=== PATIENT | male | born 1985 | race Caucasian/White ===

== ENCOUNTER 2017-11-25 00:14 | Emergency (ER) | payer BC, OTHER ==
[~2017-11-25] VITALS: Ht 172.7 cm; Wt 84.8 kg
[~2017-11-25 00:14] MED LIST: ACHD5005 PO; AMOX500C2 PO; BENZ100C18; DOXY-13 PO; HYDR118S10 PO; LEVO500T69 PO; NAPR-243 PO; PRCD5U PO; TYLENOL SINUS
--- OUTSIDE RECORDS SUMMARY | 2017-11-25 00:21 | XMS REPORT ---
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 Info Not Available Non Drug Allergy Problems Problem Type Condition Code Onset Dates Condition Status Assessment Swollen eyelid H02.849 Active Assessment Sinusitis J32.9 Active Assessment Cough R05 Active Problem Cough R05 Active Problem Seasonal allergies J30.2 Active Problem Upper respiratory tract infection, unspecified type 465.9 Active Problem Headache 784.0 Active Problem Screening examination for pulmonary tuberculosis V74.1 Active Problem Tobacco abuse Z72.0 Active Problem VARICELLA DX V05.4 Active Medications Medication Code System Code Instructions Start Date End Date Status Dosage Ofloxacin [facility] [address]-16 0.3 % Ophthalmic Four times a day June 30, 2015 July 03, 2015 1 drop into affected eye Areli NDC 0 not defined Doxycycline Hyclate [facility] [address]-54 100 MG Orally every 12 hrs June 29, 2015 July 09, 2015 1 capsule Azelastine HCl [facility] [address]-34 0.1 % Nasally Twice a day for allergies June 29, 2015 1 puff in each nostril Procedures Procedure Coding System Code Date Office Visit, Est Pt., Level 3 CPT-4 56741 June 29, 2015 Vital Signs Date/Time: June 29, 2015 Temperature 97.6 F Weight 202 lbs Height 68 in BMI 30.71 Index Blood Pressure Diastolic 64 mmHg Blood Pressure Systolic 116 mmHg Cardiac Monitoring Heart Rate 74 bpm Results No Known Results Summary Purpose eClinicalWorks Submission
--- OUTSIDE RECORDS SUMMARY | 2017-11-25 00:21 | XMS REPORT ---
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 Name Role Phone JULIENNE Dave Unavailable PROBLEMS Type Condition ICD9-CM Code AHC67-ZP Code Onset Dates Condition Status SNOMED Code Problem Screening examination for pulmonary tuberculosis V74.1 Active 420776224 Problem Cough R05 Active 36941398 Problem Tobacco abuse Z72.0 Active 92651908 Problem Headache 784.0 Active 44392170 Problem VARICELLA DX V05.4 Active 898105562 Problem Seasonal allergies J30.2 Active 497775904 Problem Upper respiratory tract infection, unspecified type 465.9 Active 10913605 ALLERGIES No Known Allergies ENCOUNTERS Encounter Location Date Diagnosis [place] [id number] [address] Oct, Exposure to HIV virus Z20.[address] [address] Aug, Screening for STD (sexually transmitted disease) Z11.[address] [address] Jun, [facility] [address] [address] Jun, Sinusitis J32.9 ; Cough R05 and Swollen eyelid H02.[address] [address] Apr, Upper respiratory tract infection, unspecified type 465.9 ; Cough R05 ; Seasonal allergies J30.2 and Tobacco abuse Z72.[address] [address] Aug, Pre-employment examination V70.5 [facility] [address] [place] [id number] [address] Jun, [facility] [id number] [address] Jun, [facility] [id number] [place] [address] Aug, [facility] [id number] [place] [address] Aug, [facility] [address] [id number] [address] Aug, [facility] [id number] [place] [address] Mar, [facility] [id number] [address] Mar, [facility] [id number] [place] [address] Apr, [facility] [address] [place] [address] Mar, [facility] [id number] [place] [address] Aug, [facility] [id number] [address] Aug, [facility] [id number] [address] Aug, IMMUNIZATIONS No Known Immunizations SOCIAL HISTORY Never Assessed REASON FOR VISIT std testing-the patient would like to be tested to make sure things are ok. He has an HIV positive partner.--GILLES Herndon PLAN OF CARE Activity Details Follow Up prn Reason: VITAL SIGNS Height 68 in 2017-09-30 Weight 188.6 lbs 2017-09-30 Temperature 99.2 degrees Fahrenheit 2017-09-30 Heart Rate 92 bpm 2017-09-30 Respiratory Rate 20 2017-09-30 BMI 28.67 kg/m2 2017-09-30 Blood pressure systolic 114 mmHg 2017-09-30 Blood pressure diastolic 76 mmHg 2017-09-30 MEDICATIONS No Known Medications RESULTS Name Result Date Reference Range GC/CHLAM URINE (STATE) 2017-09-30 CHLAMYDIA neg GC neg HEP C ANTIBODY (STATE) 2017-09-30 RESULTS non-reactive SYPHILIS (STATE) 2017-09-30 HIV (STATE) 2017-09-30 HEP B SURFACE ANTIGEN (STATE) 2017-09-30 HEP B ANTIBODY non-reactive HEP B ANTIBODY (RML) HEP B ANTIBODY (STATE) PROCEDURES Procedure Date Ordered Result Body Site No Charge September 30, 2017 VENIPUNCT, ROUTINE* September 30, 2017 INSTRUCTIONS MEDICATIONS ADMINISTERED No Known Medications MEDICAL (GENERAL) HISTORY Type Description Date Hospitalization History Flu/dehydration
--- OUTSIDE RECORDS SUMMARY | 2017-11-25 00:21 | XMS REPORT ---
Author BON Gibson [facility] eClinicalWorks Address Unknown Phone Unavailable Care Team Providers Care Group Account Director Name Role Phone BON RAO CP Unavailable Allergies No Known Allergies Problems Problem Type Condition Code Onset Dates Condition Status Problem Cough R05 Active Problem Seasonal allergies J30.2 Active Problem Upper respiratory tract infection, unspecified type 465.9 Active Problem Headache 784.0 Active Problem Screening examination for pulmonary tuberculosis V74.1 Active Problem Tobacco abuse Z72.0 Active Problem VARICELLA DX V05.4 Active Medications No Known Medications Results No Known Results Summary Purpose eClinicalWorks Submission
--- OUTSIDE RECORDS SUMMARY | 2017-11-25 00:22 | XMS REPORT | Continuity of Care Document ---
Author Author [facility] Address Unknown Phone Unavailable Allergies Active Description Code Type Severity Reaction Onset Reported/Identified Relationship to Patient Clinical Status Yes No Known Drug Allergies [id number] Drug Allergy Unknown N/A 10/21/2007 Medications There is no data. Problems Date Dx Coded Attending Type Code Diagnosis Diagnosed By 09/10/2011 V74.1 TB SCREENING 09/10/2011 YOLI HAMMOND MD V74.1 TB SCREENING 09/10/2011 JENY BURROUGHS DO V74.1 TB SCREENING 04/09/2012 YOLI HAMMOND MD 784.0 HEADACHE 04/09/2012 JENY BURROUGHS DO 784.0 HEADACHE 08/05/2013 JENY BURROUGHS DO V05.4 VARICELLA DX 11/21/2013 ADELITA GREEN MD Ot 780.4 DIZZINESS AND GIDDINESS 11/21/2013 ADELITA GREEN MD Ot 787.02 NAUSEA ALONE 11/21/2013 ADELITA GREEN MD Ot V45.89 POSTSURGICAL STATES NEC Procedures Code [place] [address] TB TEST INTRADERMAL 08/05/2013 Results Test Result Range DIFFERENTIAL, MANUAL - 10/28/17 11:13 ABSOLUTE NEUTROPHILS 3231 cells/uL 0825-4464 ABSOLUTE MONOCYTES 465 cells/uL 200-950 ABSOLUTE EOSINOPHILS 0 cells/uL 15-500 ABSOLUTE BASOPHILS 0 cells/uL 0-200 NEUTROPHILS 57.7 % NRG LYMPHOCYTES 34.0 % NRG MONOCYTES 8.3 % NRG EOSINOPHILS 0 % NRG BASOPHILS 0 % NRG ABSOLUTE LYMPHOCYTES 1904 cells/uL 850-3900 CBC MORPHOLOGY NORMAL Encounters ACCT No. Visit Date/Time Discharge Status Pt. Type Provider Facility Loc./Unit Complaint [id number] 08/05/2013 09:50:00 08/05/2013 23:59:59 CLS Outpatient JENY BURROUGHS DO [id number] 04/09/2012 11:23:00 04/09/2012 23:59:59 CLS Outpatient YOLI HAMMOND MD [id number] 11/07/2011 16:42:00 11/07/2011 23:59:59 CLS Outpatient [id number] 11/21/2013 20:43:00 11/21/2013 22:12:00 DIS Emergency NORMA SALAZAR, ADELITA Bloom [facility] ER DIZZINESS,NAUSEA [id number] 11/25/2017 00:17:00 ACT Emergency SHERI SALAZAR, SHAMEKA Goodman [facility] ER ABD PAIN [id number] 09/30/2017 12:50:00 09/30/2017 23:59:59 CLS Outpatient JENY BURROUGHS DO [facility] [id number] 10/28/2017 10:20:00 Document Registration
[2017-11-25] MEDS ORDERED: EMTR1TAB7 (00:37)
[2017-11-25] MEDS ORDERED: NS IV 1000 ML 1,000 ML IV STA (00:38)
[2017-11-25] MEDS ORDERED: LIDOCAINE 2% VISCOUS 15 ML UDC PO ONE (00:45)
[2017-11-25] MEDS ORDERED: ONDANSETRON 4 MG/2 ML (SDV) Z0FRAN IVP ONE (00:45)
[2017-11-25] MEDS ORDERED: ANTACID SUSP 30 ML UDC (MYLANTA) PO ONE (00:45)
[2017-11-25] MEDS ORDERED: FAMOTIDINE 20MG/2ML IV (PEPCID) IVP ONE (00:45)
--- NOTE | 2017-11-25 00:54 | ED Abdominal Pain ---
General Chief Complaint: Abdominal/GI Problems Stated Complaint: ABD PAIN Nursing Triage Note: PT PRESENTS TO ER WITH COMPLAINT OF ABD PAIN THAT STARTED 2 HOURS AGO. STATES HE ATE [employer]ILI FOR DINNER ADN THEN ICECREAM. STATES HIS PAIN STARTED AFTER THE ICECREAM. STATES HE ALSO VOMITED ONE TIME. Sepsis Screen: No Definite Risk Source of Information: Patient Exam Limitations: No Limitations History of Present Illness Date Seen by Provider: Nov 25, 2017 Time Seen by Provider: 00:26 Initial Comments This 32-year-old gentleman presents to the emergency room with upper abdominal pain bilaterally that radiates into the back bilaterally that started around 22: 00 after eating ice cream. He denies any prior episodes. He has had associated vomiting which brought him some relief. Belching also brings him some relief His last oral intake was at approximately midnight. He denies any urinary symptoms, diarrhea or constipation. He is afebrile. He rarely drinks alcohol and last drank alcohol on Friday. He drank rum and Coke. [facility]. Allergies and Home Medications Allergies Coded Allergies: No Known Drug Allergies (Verified , 10/21/07) Home Medications Omeprazole 20 Mg Capsule.dr, 20 MG PO BID Prescribed by: SHAMEKA PANDA on 11/25/17 0142 Patient Home Medication List Home Medication List Reviewed: Yes Review of Systems Review of Systems Constitutional: no symptoms reported EENTM: No Symptoms Reported Respiratory: No Symptoms Reported Cardiovascular: No Symptoms Reported Gastrointestinal: See HPI Genitourinary: No Symptoms Reported Musculoskeletal: no symptoms reported Skin: no symptoms reported Psychiatric/Neurological: No Symptoms Reported Endocrine: No Symptoms Reported Hematologic/Lymphatic: No Symptoms Reported Past Vqnalgj-Kwmqoq-Biblxk Hx Past Med/Social Hx: Reviewed and Corrections made Patient Social History Alcohol Use: Denies Use Recreational Drug Use: No Smoking Status: Never a Smoker Recent Foreign Travel: No Contact w/Someone Who Travel: No Recent Infectious Disease Expo: No Recent Hopitalizations: No Immunizations Up To Date Tetanus Booster (TDap): Unknown PED Vaccines UTD: Yes Past Medical History Surgeries: Yes Ear Surgery Respiratory: No Cardiac: No Neurological: No Reproductive Disorders: No Gastrointestinal: No Endocrine: No HEENT: No Cancer: No Psychosocial: No Blood Disorders: No Physical Exam Vital Signs Vital Signs - First Documented 11/25/17 00:22 Temp 98.8 Pulse 66 Resp 16 B/P (MAP) 128/84 (99) Pulse Ox 94 O2 Delivery Room Air Capillary Refill : Less Than 3 Seconds Height/Weight/BMI Height: 5'8.00" Weight: 187lbs. oz. 84.820070be; BMI Method:Stated General Appearance: WD/WN, mild distress HEENT: PERRL/EOMI, normal ENT inspection Neck: normal inspection Respiratory: lungs clear, normal breath sounds, no respiratory distress, no accessory muscle use Cardiovascular: regular rate, rhythm, no edema, no murmur Gastrointestinal: soft, abnormal bowel sounds (hyperactive), tenderness ( across the upper abdomen) Extremities: normal inspection, no pedal edema Neurologic/Psychiatric: nutritional health coach II-XII nml as tested, no motor/sensory deficits, alert, normal mood/affect, oriented x 3 Skin: normal color Progress/Results/Core Measures Results/Orders Lab Results Laboratory Tests Test 11/25/17 00:54 Range/Units White Blood Count 7.7 4.3-11.0 10^3/uL Red Blood Count 4.05 L 4.35-5.85 10^6/uL Hemoglobin 14.3 13.3-17.7 G/DL Hematocrit 41 40-54 % Mean Corpuscular Volume 101 H 80-99 FL Mean Corpuscular Hemoglobin 35 H 25-34 PG Mean Corpuscular Hemoglobin Concent 35 32-36 G/DL Red Cell Distribution Width 15.2 H 10.0-14.5 % Platelet Count 159 130-400 10^3/uL Mean Platelet Volume 10.7 H 7.4-10.4 FL Neutrophils (%) (Auto) 72 42-75 % Lymphocytes (%) (Auto) 20 12-44 % Monocytes (%) (Auto) 6 0-12 % Eosinophils (%) (Auto) 1 0-10 % Basophils (%) (Auto) 0 0-10 % Neutrophils # (Auto) 5.5 1.8-7.8 X 10^3 Lymphocytes # (Auto) 1.6 1.0-4.0 X 10^3 Monocytes # (Auto) 0.5 0.0-1.0 X 10^3 Eosinophils # (Auto) 0.1 0.0-0.3 10^3/uL Basophils # (Auto) 0.0 0.0-0.1 10^3/uL Urine Color YELLOW Urine Clarity CLEAR Urine pH 6 5-9 Urine Specific Harrell 1.015 L 1.016-1.022 Urine Protein 1+ H NEGATIVE Urine Glucose (UA) NEGATIVE NEGATIVE Urine Ketones NEGATIVE NEGATIVE Urine Nitrite NEGATIVE NEGATIVE Urine Bilirubin NEGATIVE NEGATIVE Urine Urobilinogen NORMAL NORMAL MG/DL Urine Leukocyte Esterase NEGATIVE NEGATIVE Urine RBC (Auto) NEGATIVE NEGATIVE Urine RBC NONE /HPF Urine WBC NONE /HPF Urine Squamous Epithelial Cells 0-2 /HPF Urine Crystals NONE /LPF Urine Bacteria NEGATIVE /HPF Urine Casts NONE /LPF Urine Mucus SMALL H /LPF Urine Culture Indicated NO Sodium Level 143 135-145 MMOL/L Potassium Level 3.6 3.6-5.0 MMOL/L Chloride Level 108 H 98-107 MMOL/L Carbon Dioxide Level 25 21-32 MMOL/L Anion Gap 10 5-14 MMOL/L Blood Urea Nitrogen 8 7-18 MG/DL Creatinine 0.88 0.60-1.30 MG/DL Estimat Glomerular Filtration Rate > 60 BUN/Creatinine Ratio 9 Glucose Level 100 70-105 MG/DL Calcium Level 9.2 8.5-10.1 MG/DL Corrected Calcium 8.5-10.1 MG/DL Total Bilirubin 1.5 H 0.1-1.0 MG/DL Aspartate Amino Transf (AST/SGOT) 15 5-34 U/L Alanine Aminotransferase (ALT/SGPT) 14 0-55 U/L Alkaline Phosphatase 61 40-136 U/L Total Protein 7.2 6.4-8.2 GM/DL Albumin 4.7 H 3.2-4.5 GM/DL Lipase 18 8-78 U/L My Orders Orders - SHAMEKA WADE MD Cbc With Automated Diff (11/25/17 00:38) Comprehensive Metabolic Panel (11/25/17 00:38) Lipase (11/25/17 00:38) Ua Culture If Indicated (11/25/17:38) Ondansetron Injection (Zofran Injectio (11/25/17 00:45) Lidocaine 2% Viscous 15 Ml (Xylocaine Vi (11/25/17 00:45) Ns Iv 1000 Ml (Sodium Chloride 0.9%) (11/25/17 00:38) Antacid Suspension (Mylanta Suspension (11/25/17 00:45) Saline Lock/Iv-Start (11/25/17 00:38) Famotidine Injection (Pepcid Injection) (11/25/17 00:45) Rx-Ondansetron Po (Rx-Zofran Po) (11/25/17 01:35) Medications Given in ED Current Medications Medications Dose Ordered Sig/Mine Route Start Time Stop Time Status Last Admin Dose Admin Al Hydrox/Mg Hydrox/Simethicone 30 ml ONCE ONCE PO 11/25/17 00:45 11/25/17 00:46 DC 11/25/17 01:20 30 ML Famotidine 20 mg ONCE ONCE IVP 11/25/17 00:45 11/25/17 00:46 DC 11/25/17 00:57 20 MG Lidocaine HCl 15 ml ONCE ONCE PO 11/25/17 00:45 11/25/17 00:46 DC 11/25/17 01:20 15 ML Ondansetron HCl 8 mg ONCE ONCE IVP 11/25/17 00:45 11/25/17 00:46 DC 11/25/17 00:57 8 MG Vital Signs/I&O 11/25/17 00:22 Temp 98.8 Pulse 66 Resp 16 B/P (MAP) 128/84 (99) Pulse Ox 94 O2 Delivery Room Air Blood Pressure Mean: 99 Progress Progress Note #1: Time: 00:55 Progress Note Patient has been seen and examined. Basic labs have been ordered. Patient will be treated with Zofran, GI cocktail, and Pepcid. Progress Note #2: Time: 01:30 Progress Note Labs are still pending. Patient is feeling better after treatment. He is less tender on repeat examination. Progress Note #3: Time: 01:53 Progress Note Labs reviewed. Patient is still doing well. He is being discharged with a take -home packet of Zofran. Departure Impression Primary Impression: Upper abdominal pain Additional Impression: Nausea and vomiting Qualified Codes: R11.2 - Nausea with vomiting, unspecified Disposition: 01 HOME, SELF-CARE Condition: Improved Departure-Patient Inst. Decision time for Depature: 01:39 Referrals: [facility] (PCP) Primary Care Physician ANTONIO GORDON MD (Family) Primary Care Physician Patient Instructions: Acute Abdomen (Belly Pain), Adult (DC), Nausea and Vomiting, Adult, Gastritis (DC) Add. Discharge Instructions: Drink plenty of clear liquids. Gradually advance your diet with small quantities of bland food as tolerated. Avoid alcohol, spicy foods, fatty or greasy foods, NSAID medications such as ibuprofen or naproxen, tobacco, or anything else you know irritates your stomach. Dissolve Zofran (ondansetron) under the tongue every 4 hours as needed for nausea and vomiting. Use an antacid such as the prescribed omeprazole for at least 2 weeks. Follow-up with your primary care provider as soon as possible. Return to the emergency room if symptoms worsen. All discharge instructions reviewed with patient and/or family. Voiced understanding. Scripts Omeprazole (Omeprazole) 20 Mg Capsule. 20 MG PO BID, #30 CAP Prov: SHAMEKA WADE MD 11/25/17 Work/School Note: Work Release Form Date Seen in the Emergency Department: Nov 25, 2017 Return to Work: Nov 26, 2017 Restrictions: No Restrictions SHAMEKA WADE MD Nov 25, 2017 00:53
[2017-11-25 01:09] LABS: BILIRUBIN,URINE NEGATIVE (NEGATIVE); CLARITY,URINE CLEAR; COLOR,URINE YELLOW; GLUCOSE, URINE (UA) NEGATIVE (NEGATIVE); KETONES,URINE NEGATIVE (NEGATIVE); LEUKOCYTE ESTERASE ,URINE NEGATIVE (NEGATIVE); NITRITE,URINE NEGATIVE (NEGATIVE); PH,URINE 6 (5-9); PROTEIN,URINE 1+ (NEGATIVE); UROBILINOGEN,URINE NORMAL (NORMAL)
[2017-11-25 01:10] LABS: BASOPHILS % (AUTO) 0 % (0-10); EOSINOPHILS # (AUTO) 0.1 10^3/uL (0.0-0.3); EOSINOPHILS % (AUTO) 1 % (0-10); HEMATOCRIT 41 % (40-54); HEMOGLOBIN 14.3 G/DL (13.3-17.7); LYMPHOCYTES # (AUTO) 1.6 X 10^3 (1.0-4.0); LYMPHOCYTES % (AUTO) 20 % (12-44); MEAN CORPUSCULAR HEMOGLOBIN 35 PG (25-34); MEAN CORPUSCULAR HGB CONC 35 G/DL (32-36); MEAN CORPUSCULAR VOLUME 101 FL (80-99); MEAN PLATELET VOLUME 10.7 FL (7.4-10.4); MONOCYTES # (AUTO) 0.5 X 10^3 (0.0-1.0); MONOCYTES % (AUTO) 6 % (0-12); NEUTROPHILS # (AUTO) 5.5 X 10^3 (1.8-7.8); NEUTROPHILS % (AUTO) 72 % (42-75); PLATELET COUNT 159 10^3/uL (130-400); RED BLOOD COUNT 4.05 10^6/uL (4.35-5.85); RED CELL DISTRIBUTION WIDTH 15.2 % (10.0-14.5); WHITE BLOOD COUNT 7.7 10^3/uL (4.3-11.0)
[2017-11-25 01:23] LABS: BACTERIA,URINE NEGATIVE /HPF; SQUAMOUS EPITHELIAL CELL,UR 0-2 /HPF
[2017-11-25 01:29] LABS: ALANINE AMINOTRANSFERASE 14 U/L (0-55); ALBUMIN 4.7 GM/DL (3.2-4.5); ALKALINE PHOSPHATASE 61 U/L (40-136); BILIRUBIN,TOTAL 1.5 MG/DL (0.1-1.0); BUN/CREATININE RATIO 9; CALCIUM 9.2 MG/DL (8.5-10.1); CARBON DIOXIDE 25 MMOL/L (21-32); CHLORIDE 108 MMOL/L (98-107); CREATININE SERUM 0.88 MG/DL (0.60-1.30); GFR ESTIMATED > 60; GLUCOSE 100 MG/DL (70-105); LIPASE 18 U/L (8-78); POTASSIUM 3.6 MMOL/L (3.6-5.0); SODIUM 143 MMOL/L (135-145); TOTAL PROTEIN 7.2 GM/DL (6.4-8.2)
[2017-11-25] MEDS ORDERED: RX-ONDANSETRON 4 MG ODT (ZOFRAN) PPK #4 SL STA (01:35)
[2017-11-25] MEDS ORDERED: OMEP20CA12 PO (01:42)
[2017-11-25 01:53] VITALS: BP 128/84
== END 2017-11-25 01:53 | disposition home or self-care (01) ==
LOC: EDUNIT# 00:14 → ER 00:17
DX: R10.11 Right upper quadrant pain (principal); R11.2 Nausea with vomiting, unspecified
CPT/HCPCS: 36415; 80053; 81000; 83690; 85025; 96361; 96374; 96375

== ENCOUNTER 2021-07-24 21:09 | Emergency (ER) | payer SELFPAY ==
[~2021-07-24 21:09] MED LIST changes: +EMTR1TAB7; +OMEP20CA18 PO
[2021-07-24] MEDS ORDERED: LACTATED RINGERS 1,000 ML IV ONE (22:15)
--- NOTE | 2021-07-24 22:21 | ED Abdominal Pain ---
General Chief Complaint: Abdominal/GI Problems Stated Complaint: BLOATED, R ABD PAIN BELOW RIB CAGE Nursing Triage Note: TO ED VIA POV AND AMBULATORY TO ROOM 7 WITH C/O SHARP RLQ ABD PAIN FOR 3 DAYS THAT SOMETIMES RADIATES TO BACK. LAST BM WAS TODAY. VOMITTED LAST NIGHT. LAST TOOK TYLENOL, IBUPROFEN, AND A LAXATIVE LAST NIGHT. Source of Information: Patient History of Present Illness Date Seen by Provider: July 24, 2021 Time Seen by Provider: 22:12 Initial Comments PT ARRIVES VIA POV FROM HOME STATES FOR THE LAST 3 NIGHTS HE HAS BEEN HAVING SHARP PAINS IN RIGHT UPPER ABDOMEN THAT RADIATED AROUND TO RIGHT POSTERIOR RIBS/FLANK AREA. PAIN BEGAN AROUND 1900 TONIGHT SYMPTOMS COME AND GO, AND ARE NOT PRESENT NOW SYMPTOMS SEEM TO START AFTER HE EATS, AND THEN GRADUALLY GOES AWAY. SYMPTOMS IMPROVED A LITTLE WITH SITTING UP, AND WITH A HEATING PAD. HAS NOT TAKEN ANY MEDICATION FOR PAIN STATES HE HAS NAUSEA AND VOMITING WITH IT, HAS NOT VOMITED TONIGHT, BUT WAS N AUSEATED, NO HEMATEMESIS OR COFFEE-GROUND EMESIS HAD NORMAL BM EARLIER TODAY. NO BLACK/BLOODY/TARRY STOOLS NO FEVER NO URINARY SYMPTOMS PT ATE [employer] AROUND 1500. NO PRIOR SURGERIES OR GI PROBLEMS. DOES NOT HAVE ANY MEDICAL PROBLEMS OR TAKE MEDICATION FOR ANYTHING PT DOES SMOKE 1 1/2 PPD, OCCASIONALLY DRINKS, BUT NO ALCOHOL FOR OVER 24 HOURS, SMOKED MARIJUANA A TEEN, NO OTHER DRUG USE. PT STATES HIS MOTHER HAS HAD HER GALLBLADDER REMOVED AND SHE HAD SIMILAR SYMPTOMS PCP: [facility] [place] Allergies and Home Medications Allergies Coded Allergies: No Known Drug Allergies (Verified , 10/21/07) Patient Home Medication List Home Medication List Reviewed: Yes Emtricitabine/Tenofovir (Truvada 200 mg-300 mg Tablet) 1 Each Tablet, (Reported) Entered as Reported by: MIKAELA MARCUS on 11/25/17 0037 Hydrocodone/Acetaminophen (Hydrocodone-Acetamin 5-325 mg) 5 Mg-325 Mg Tablet, 1 EACH PO Q4-6 HOURS PRN for PAIN Prescribed by: NÉSTOR ARGUETA on 07/25/21 001 Hyoscyamine Sulfate (Levsin-Sl) 0.125 Mg Tab.subl, 0.25 MG SL Q4H Prescribed by: NÉSTOR ARGUETA on 07/25/21 001 Omeprazole (Omeprazole) 20 Mg Capsule.dr, 20 MG PO BID Prescribed by: SHAMEKA PANDA on 11/25/17 0142 Ondansetron (Ondansetron Odt) 4 Mg Tab.rapdis, 4 MG PO Q4H Prescribed by: NÉSTOR ARGUETA on 07/25/21 001 Pantoprazole Sodium (Protonix) 40 Mg Tablet.dr, 40 MG PO DAILY Prescribed by: NÉSTOR ARGUETA on 07/25/21 001 Review of Systems Review of Systems Constitutional: no symptoms reported EENTM: No Symptoms Reported Respiratory: No Symptoms Reported Cardiovascular: No Symptoms Reported Gastrointestinal: See HPI, Abdominal Pain, Nausea, Vomiting Genitourinary: No Symptoms Reported Musculoskeletal: back pain Skin: no symptoms reported Psychiatric/Neurological: No Symptoms Reported Endocrine: No Symptoms Reported Hematologic/Lymphatic: No Symptoms Reported Past Bnswpci-Nxnbum-Osqwie Hx Patient Social History Tobacco Use?: Yes Tobacco type used: Cigarettes Smoking Status: Current Everyday Smoker Substance use?: Yes Additional substance use comme: THC TEEN, NO DRUG USE SINCE THEN Alcohol Use?: Yes Alcohol Frequency: Once in a while Immunizations Up To Date Tetanus Booster (TDap): Unknown PED Vaccines UTD: Yes Influenza Vaccine Up-to-Date: No; Not Current Past Medical History Surgeries: Yes Ear Surgery Respiratory: No Cardiac: No Neurological: No Reproductive Disorders: No HIV/AIDS: No (DENIES--STATES HE WAS TAKING TRUVADA IN THE PAST FOR PREP. ) Genitourinary: No Gastrointestinal: No Musculoskeletal: No Endocrine: No HEENT: No Cancer: No Psychosocial: No Integumentary: No Blood Disorders: No Physical Exam Vital Signs Vital Signs - First Documented 07/24/21 21:26 Temp 36.4 Pulse 90 Resp 16 B/P (MAP) 145/92 (109) Pulse Ox 93 O2 Delivery Room Air Capillary Refill : Less Than 3 Seconds Height/Weight/BMI Height: 5'8.00" Weight: 187lbs. oz. 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, no motor/sensory deficits, alert, normal mood/affect, oriented x 3 Skin: normal color, warm/dry, tattoos/piercings Progress/Results/Core Measures Results/Orders Lab Results Laboratory Tests Test 07/24/21 22:25 07/24/21 22:50 Range/Units Urine Color YELLOW Urine Clarity CLEAR Urine pH 6.0 5-9 Urine Specific [place] 1.010 L 1.016-1.022 Urine Protein NEGATIVE NEGATIVE Urine Glucose (UA) NEGATIVE NEGATIVE Urine Ketones NEGATIVE NEGATIVE Urine Nitrite NEGATIVE NEGATIVE Urine Bilirubin NEGATIVE NEGATIVE Urine Urobilinogen 0.2 < = 1.0 MG/DL Urine Leukocyte Esterase NEGATIVE NEGATIVE Urine RBC (Auto) NEGATIVE NEGATIVE Urine RBC NONE /HPF Urine WBC NONE /HPF Urine Squamous Epithelial Cells NONE /HPF Urine Renal Epithelial Cells NONE /HPF Urine Crystals NONE /LPF Urine Bacteria NEGATIVE /HPF Urine Casts NONE /LPF Urine Mucus NEGATIVE /LPF Urine Culture Indicated NO White Blood Count 6.3 4.3-11.0 10^3/uL Red Blood Count 4.00 L 4.30-5.52 10^6/uL Hemoglobin 14.5 13.3-17.7 g/dL Hematocrit 44 40-54 % Mean Corpuscular Volume 109 H 80-99 fL Mean Corpuscular Hemoglobin 36 H 25-34 pg Mean Corpuscular Hemoglobin Concent 33 32-36 g/dL Red Cell Distribution Width 12.5 10.0-14.5 % Platelet Count 140 130-400 10^3/uL Mean Platelet Volume 10.3 9.0-12.2 fL Immature Granulocyte % (Auto) 0 % Neutrophils (%) (Auto) 64 42-75 % Lymphocytes (%) (Auto) 26 12-44 % Monocytes (%) (Auto) 7 0-12 % Eosinophils (%) (Auto) 2 0-10 % Basophils (%) (Auto) 1 0-10 % Neutrophils # (Auto) 4.0 1.8-7.8 10^3/uL Lymphocytes # (Auto) 1.6 1.0-4.0 10^3/uL Monocytes # (Auto) 0.4 0.0-1.0 10^3/uL Eosinophils # (Auto) 0.1 0.0-0.3 10^3/uL Basophils # (Auto) 0.0 0.0-0.1 10^3/uL Immature Granulocyte # (Auto) 0.0 0.0-0.1 10^3/uL Percent Immature Platelet Fraction 4.4 0.0-7.6 % Sodium Level 138 135-145 MMOL/L Potassium Level 3.4 L 3.6-5.0 MMOL/L Chloride Level 101 98-107 MMOL/L Carbon Dioxide Level 25 21-32 MMOL/L Anion Gap 12 5-14 MMOL/L Blood Urea Nitrogen 6 L 7-18 MG/DL Creatinine 0.83 0.60-1.30 MG/DL Estimat Glomerular Filtration Rate 116 BUN/Creatinine Ratio 7 Glucose Level 96 70-105 MG/DL Calcium Level 9.3 8.5-10.1 MG/DL Corrected Calcium 9.1 8.5-10.1 MG/DL Total Bilirubin 1.1 H 0.1-1.0 MG/DL Aspartate Amino Transf (AST/SGOT) 19 5-34 U/L Alanine Aminotransferase (ALT/SGPT) 30 0-55 U/L Alkaline Phosphatase 72 40-136 U/L Total Protein 7.4 6.4-8.2 GM/DL Albumin 4.3 3.2-4.5 GM/DL Amylase Level 26 25-125 U/L Lipase 9 8-78 U/L My Orders Orders - NÉSTOR ARGUETA DO Ed Iv/Invasive Line Start (07/24/21 22:12) Amylase (07/24/21 22:12) Cbc With Automated Diff (07/24/21 22:12) Comprehensive Metabolic Panel (07/24/21 22:12) Lipase (07/24/21 22:12) Ua Culture If Indicated (07/24/21 22:12) Ed Iv/Invasive Line Start (07/24/21 22:12) Lactated Ringers (Lr 1000 Ml Iv Solution (07/24/21 22:15) Ct Abdomen/Pelvis W (07/24/21 22:39) Iohexol Injection (Omnipaque 350 Mg/Ml 1 (07/24/21 23:30) Sodium Chloride Flush (Catheter Flush Sy (07/24/21 23:30) Ns (Ivpb) (Sodium Chloride 0.9% Ivpb Bag (07/24/21 23:30) Ketorolac Injection (Toradol Injection) (07/25/21 00:00) Ondansetron Injection (Zofran Injectio (07/25/21 00:00) Rx-Hydrocodone/Apap 5-325 Mg (Rx-Vicodin (07/25/21 00:15) Rx-Hyoscyamine Tab (Rx-Levsin Sl) (07/25/21 00:07) Rx-Ondansetron Po (Rx-Zofran Po) (07/25/21 00:07) Pantoprazole Tablet (Protonix Tablet) (07/25/21 00:15) Medications Given in ED Current Medications Medications Dose Ordered Sig/Mine Route Start Time Stop Time Status Last Admin Dose Admin Acetaminophen/ Hydrocodone Bitart 1 ea Q4H PRN PO 07/25/21 00:15 07/25/21 00:23 DC 07/25/21 00:21 1 EA Iohexol 100 ml ONCE ONCE IV 07/24/21 23:30 07/24/21 23:31 DC 07/24/21 23:31 100 ML Ketorolac Tromethamine 30 mg ONCE ONCE IVP 07/25/21 00:00 07/25/21 00:01 DC 07/24/21 23:53 30 MG Lactated Ringer's 1,000 ml @ 0 mls/hr Q0M ONCE IV 07/24/21 22:15 07/24/21 22:20 DC 07/24/21 22:50 999 MLS/HR Ondansetron HCl 4 mg ONCE ONCE IVP 07/25/21 00:00 07/25/21 00:01 DC 07/24/21 23:53 4 MG Pantoprazole Sodium 40 mg ONCE ONCE PO 07/25/21 00:15 07/25/21 00:16 DC 07/25/21 00:21 40 MG Sodium Chloride 10 ml NEEDED PRN IV 07/24/21 23:30 07/25/21 00:23 DC 07/24/21 23:31 10 ML Sodium Chloride 100 ml ONCE ONCE IV 07/24/21 23:30 07/24/21 23:31 DC 07/24/21 23:31 80 ML Vital Signs/I&O 5/24/22 5/25/22 21:26 00:23 Temp 36.4 36.4 Pulse 90 79 Resp 16 16 B/P (MAP) 145/92 (109) 104/51 Pulse Ox 93 94 O2 Delivery Room Air Room Air 07/24/21 23:59 Intake Total 1000 ml Balance 1000 ml Blood Pressure Mean: 109 Progress Progress Note : Progress Note PT DID START TO HAVE SOME RETURN OF PAIN--GIVEN TORADOL WITH ZOFRAN WITH RELIEF OF PAIN OFFERED TO ADMIT PT, HAVE SURGICAL CONSULT AND POSSIBLY SURGERY TOMORROW PT OPTS TO GO HOME AND FOLLOW UP WITH SURGEON IN OFFICE AND SCHEDULE SURGERY AT A LATER DATE. Diagnostic Imaging Comments CT ABDOMEN/PELVIS--GALLBLADDER WALL THICKENINNG, MILD MURAL THICKENING OF SMALL BOWEL WALL IN RLQ. MILD ENTERITIS IS CONSIDERATION. PER [facility] VIA FAX AT [id number] Reviewed: Reviewed by Me Departure Impression Primary Impression: Biliary colic Disposition: HOME, SELF-CARE Condition: Improved Departure-Patient Inst. Decision time for Depature: 00:05 Referrals: [facility] [place] (PCP) Primary Care Physician ANTONIO GORDON MD (Family) Primary Care Physician BYRON GONSALEZ DO Patient Instructions: Gallbladder Diet, Gallstones (DC) Add. Discharge Instructions: CLEAR LIQUIDS--WATER, BROTH, JELLO, GATORADE BRATS DIET--BANANAS, RICE, APPLESAUCE,TOAST, SALTINES FOLLOW UP WITH DR. GONSALEZ THIS WEEK FOR FURTHER CARE, RETURN TO ER IF WORSE All discharge instructions reviewed with patient and/or family. Voiced un derstanding. Scripts Hydrocodone/Acetaminophen (Hydrocodone-Acetamin 5-325 mg) 5 Mg-325 Mg Tablet 1 EACH PO Q4-6 HOURS PRN for PAIN, #12 TAB Prov: NÉSTOR ARGUETA DO 07/25/21 Ondansetron (Ondansetron Odt) 4 Mg Tab.rapdis 4 MG PO Q4H for Nausea/Vomiting, #10 TAB Prov: ELLIEYESSICAA K DO 07/25/21 Hyoscyamine Sulfate (Levsin-Sl) 0.125 Mg Tab.subl 0.25 MG SL Q4H, #15 TAB Prov: ELLIENÉSTOR K DO 07/25/21 Pantoprazole Sodium (Protonix) 40 Mg Tablet.dr 40 MG PO DAILY, #15 TAB Prov: YESSICA ARGUETAA K DO 07/25/21 NÉSTOR ARGUETA DO July 24, 2021 22:21
[2021-07-24 22:30] LABS: BILIRUBIN,URINE NEGATIVE (NEGATIVE); CLARITY,URINE CLEAR; COLOR,URINE YELLOW; GLUCOSE, URINE (UA) NEGATIVE (NEGATIVE); KETONES,URINE NEGATIVE (NEGATIVE); LEUKOCYTE ESTERASE ,URINE NEGATIVE (NEGATIVE); NITRITE,URINE NEGATIVE (NEGATIVE); PROTEIN,URINE NEGATIVE (NEGATIVE)
[2021-07-24 22:35] LABS: BACTERIA,URINE NEGATIVE /HPF
[2021-07-24 23:00] LABS: BASOPHILS % (AUTO) 1 % (0-10); EOSINOPHILS # (AUTO) 0.1 10^3/uL (0.0-0.3); EOSINOPHILS % (AUTO) 2 % (0-10); HEMOGLOBIN 14.5 g/dL (13.3-17.7)
[2021-07-24 23:02] LABS: HEMATOCRIT 44 % (40-54); LYMPHOCYTES # (AUTO) 1.6 10^3/uL (1.0-4.0); LYMPHOCYTES % (AUTO) 26 % (12-44); MEAN CORPUSCULAR HEMOGLOBIN 36 pg (25-34); MEAN CORPUSCULAR HGB CONC 33 g/dL (32-36); MEAN CORPUSCULAR VOLUME 109 fL (80-99); MEAN PLATELET VOLUME 10.3 fL (9.0-12.2); MONOCYTES # (AUTO) 0.4 10^3/uL (0.0-1.0); MONOCYTES % (AUTO) 7 % (0-12); NEUTROPHILS % (AUTO) 64 % (42-75); PLATELET COUNT 140 10^3/uL (130-400); WHITE BLOOD COUNT 6.3 10^3/uL (4.3-11.0)
[2021-07-24 23:24] LABS: ALBUMIN 4.3 GM/DL (3.2-4.5)
[2021-07-24 23:25] LABS: POTASSIUM 3.4 MMOL/L (3.6-5.0)
[2021-07-24 23:26] LABS: CALCIUM 9.3 MG/DL (8.5-10.1)
[2021-07-24 23:27] LABS: TOTAL PROTEIN 7.4 GM/DL (6.4-8.2)
[2021-07-24 23:29] LABS: BILIRUBIN,TOTAL 1.1 MG/DL (0.1-1.0)
[2021-07-24 23:30] LABS: CREATININE SERUM 0.83 MG/DL (0.60-1.30)
[2021-07-24] MEDS ORDERED: IOHEXOL 350 MG/ML 100 ML (OMNIPAQUE 350) VIAL IV ONE (23:30)
[2021-07-24] MEDS ORDERED: NS 100 ML (IVPB) BAG IV ONE (23:30)
[2021-07-24] MEDS ORDERED: CATHETER FLUSH 10 ML SYR IV PRN (23:30)
[2021-07-25] MEDS ORDERED: ONDANSETRON 4 MG/2 ML (SDV) Z0FRAN IVP ONE
[2021-07-25] MEDS ORDERED: KETOROLAC 30 MG/ML VIAL IVP ONE
[2021-07-25] MEDS ORDERED: RX-HYOSCYAMINE 0.125 MG SL (LEVSIN) PPK#6 SL STA (00:07)
[2021-07-25] MEDS ORDERED: RX-ONDANSETRON 4 MG ODT (ZOFRAN) PPK #4 PO STA (00:07)
[2021-07-25] MEDS ORDERED: PANT40TA2 PO (00:13)
[2021-07-25] MEDS ORDERED: HYOS0.1283 SL (00:13)
[2021-07-25] MEDS ORDERED: ONDA4TAB11 PO (00:13)
[2021-07-25] MEDS ORDERED: ACHD5005 PO (00:13)
[2021-07-25] MEDS ORDERED: PANTOPRAZOLE 40 MG (PROTONIX) TAB PO ONE (00:15)
[2021-07-25 00:23] VITALS: BP 104/51
--- NOTE | 2021-07-25 07:30 | Diagnostic Imaging Report ---
PROCEDURE: CT abdomen and pelvis with contrast. TECHNIQUE: Multiple contiguous axial images were obtained through the abdomen and pelvis after administration of intravenous contrast. Auto Exposure Controls were utilized during the CT exam to meet ALARA standards for radiation dose reduction. All CT scans use one or more of the following dose optimizing techniques: automated exposure control, MA and/or KvP adjustment based on patient size and exam type or iterative reconstruction. INDICATION: Right-sided abdominal pain. COMPARISON: None FINDINGS: Included portions of the lung bases show punctate micronodule within the posterior margins of the left lower lobe measuring 2 mm (image 26, series 2). CT ABDOMEN: Liver appears slightly hypodense on this postcontrast exam. No focal suspicious hepatic lesions are seen. Note is made of mild distention of the gallbladder. There is also mildly thickened appearance of the gallbladder wall. Please note, CT is suboptimal to assess for cholelithiasis or choledocholithiasis. Kidneys, adrenal glands, spleen, and pancreas have a normal CT appearance. There is no loculated fluid collection free fluid or free air within the abdomen. No abnormal mesenteric or retroperitoneal adenopathy is seen. Small bowel loops are nondistended. There is however fairly diffuse moderate small bowel wall thickening. There may be some relative sparing of the distal ileum. Small bowel loops are otherwise nondistended. There is no pneumatosis, pneumoperitoneum, nor portal venous gas. Normal appendix is identified. There are a few scattered distal colonic diverticula, but no CT evidence of acute diverticulitis. Osseous structures show no gross acute abnormalities. CT PELVIS: Urinary bladder is unopacified. No calculi are seen within urinary bladder. There is no loculated fluid collection, free fluid or free air. No abnormal lymph nodes are seen. Osseous structures show no acute abnormalities. IMPRESSION: 1. Moderate abnormal diffuse small bowel wall thickening. Findings are nonspecific, but raise suspicion for enteritis. 2. No evidence of small bowel obstruction. 3. Mild prominence of the gallbladder with underlying gallbladder wall thickening. Please note, CT is suboptimal to assess for cholelithiasis. May want to consider further evaluation of right upper quadrant abdominal sonogram or HIDA scan to exclude diverticulitis. 4. Mild hypodense appearance of the hepatic parenchyma suggests hepatic steatosis. Dictated by: Dictated on workstation # [id number]
== END 2021-07-25 00:23 | disposition home or self-care (01) ==
LOC: EDUNIT# 21:09 → ER 21:13
DX: K80.50 Calculus of bile duct without cholangitis or cholecystitis without obstruction (principal); F17.210 Nicotine dependence, cigarettes, uncomplicated
CPT/HCPCS: 36415; 74177; 80053; 81000; 82150; 83690; 85025

== ENCOUNTER 2021-10-14 16:25 | Emergency (ER) | payer SELFPAY ==
[~2021-10-14] VITALS: Ht 172 cm; Wt 68.0 kg
[~2021-10-14 16:25] MED LIST changes: +HYOS0.1283 SL; +ONDA4TAB11 PO; +PANT40TA2 PO
[2021-10-14 17:01] VITALS: BP 128/81
[2021-10-14 17:13] LABS: BILIRUBIN,URINE NEGATIVE (NEGATIVE); CLARITY,URINE CLEAR; COLOR,URINE ORANGE; GLUCOSE, URINE (UA) TRACE (NEGATIVE); KETONES,URINE NEGATIVE (NEGATIVE); LEUKOCYTE ESTERASE ,URINE 3+ (NEGATIVE); NITRITE,URINE POSITIVE (NEGATIVE); PROTEIN,URINE 1+ (NEGATIVE)
[2021-10-14 17:21] LABS: BACTERIA,URINE LARGE /HPF; RBC,URINE 0-2 /HPF; WBC,URINE 50-100 /HPF
--- NOTE | 2021-10-14 17:58 | ED GU-Male ---
General Chief Complaint: - Reproductive Stated Complaint: DIFFICULTY URINATING, FATIGUE Nursing Triage Note: PT TO ED W/ C/O BILAT FLANK PAIN ONSET X4 DAYS. PT ALSO C/O FATIGUE ET OCCASIONAL ELEVATED TEMP. REPORTS HAS BEEN TAKING OTC AZO ET "LEFT OVER" AMOXIL SINCE ONSET. NO OTHER C/O VOICED. Source: patient Exam Limitations: no limitations History of Present Illness Date Seen by Provider: Oct 14, 2021 Time Seen by Provider: 17:40 Initial Comments Patient is a 36-year-old male who presents to the emergency department today with a chief complaint of bilateral pain, fevers at home, malaise and generally not feeling well. He has had some discomfort with urination since . He states he has had bladder infections in the past. He had some leftover amoxicillin at home and took 1000 mg 3 times over the course of evening and Friday and then started taking 500 mg 3 times a day subsequent to that. He states he did have fever last night he still feels bad. No diarrhea, no rashes. Modest concern for STI as he has had unprotected sex. No history of STI in the past. Denies any rashes, lesions or sores. Has been taking [id number]-[id number] Azo and drinking cranberry juice. No chronic medical conditions. No prior surgeries. No allergies to medications All other review of systems reviewed and negative except as stated. Timing/Duration: other (4 days ago) Severity/Quality: moderate Location: generalized flank Activities at Onset: none Sexual [place] History: less than 2 months ago, multiple partners Modifying Factors: Worsens With Movement, Worsens With Urinating Associated Symptoms: fever/chills, lower back pain, urinary frequency Allergies and Home Medications Allergies Coded Allergies: No Known Drug Allergies (Verified , 10/21/07) Patient Home Medication List Home Medication List Reviewed: Yes Emtricitabine/Tenofovir (Truvada 200 mg-300 mg Tablet) 1 Each Tablet, (Reported) Entered as Reported by: MIKAELA MARCUS on 11/25/17 0037 Hydrocodone/Acetaminophen (Hydrocodone-Acetamin 5-325 mg) 5 Mg-325 Mg Tablet, 1 EACH PO Q4-6 HOURS PRN for PAIN Prescribed by: NÉSTOR ARGUETA on 07/25/21 0014 Hyoscyamine Sulfate (Levsin-Sl) 0.125 Mg Tab.subl, 0.25 MG SL Q4H Prescribed by: NÉSTOR ARGUETA on 07/25/21 001 Omeprazole (Omeprazole) 20 Mg Capsule.dr, 20 MG PO BID Prescribed by: SHAMEKA PANDA on 11/25/17 0142 Ondansetron (Ondansetron Odt) 4 Mg Tab.rapdis, 4 MG PO Q4H Prescribed by: NÉSTOR ARGUETA on 07/25/2112 Pantoprazole Sodium (Protonix) 40 Mg Tablet.dr, 40 MG PO DAILY Prescribed by: NÉSTOR ARGUETA on 07/25/2112 Review of Systems Review of Systems Constitutional: see HPI, fever, malaise EENTM: no symptoms reported Respiratory: no symptoms reported Cardiovascular: no symptoms reported Gastrointestinal: no symptoms reported Genitourinary: burning, frequency, hematuria, urgency Musculoskeletal: back pain Skin: no symptoms reported All Other Systemes Reviewed Negative Unless Noted: Yes Past Ysfatum-Vkawlp-Wrxvfk Hx Patient Social History Tobacco Use?: Yes Tobacco type used: Cigarettes Smoking Status: Current Everyday Smoker Use of E-Cig and/or Vaping dev: No Substance use?: No Alcohol Use?: Yes Alcohol Frequency: Once in a while Pt feels they are or have been: No Immunizations Up To Date Tetanus Booster (TDap): Unknown PED Vaccines UTD: Yes Past Medical History Surgery/Hospitalization HX: HX OF KIDNEY INFECTIONS Surgeries: Yes Ear Surgery Respiratory: No Cardiac: No Neurological: No Reproductive Disorders: No HIV/AIDS: No (DENIES--STATES HE WAS TAKING TRUVADA IN THE PAST FOR PREP. ) Genitourinary: No Gastrointestinal: No Musculoskeletal: No Endocrine: No HEENT: No Cancer: No Psychosocial: No Integumentary: No Blood Disorders: No Physical Exam Vital Signs Vital Signs - First Documented 10/14/21 17:01 Temp 37.4 Pulse 95 Resp 20 B/P (MAP) 128/81 (97) Pulse Ox 96 O2 Delivery Room Air Capillary Refill : Less Than 3 Seconds Height, Weight, BMI Height: 5'8.00" Weight: 187lbs. oz. 84.956699ep; 22.00 BMI Method:Stated General Appearance: WD/WN, no apparent distress HEENT: PERRL/EOMI Neck: normal inspection Cardiovascular: regular rate, rhythm Respiratory: lungs clear, normal breath sounds, no respiratory distress, no accessory muscle use Gastrointestinal: normal bowel sounds, non tender, soft Back: no CVA tenderness Extremities: normal range of motion, non-tender, normal inspection Neurologic/Psychiatric: alert, normal mood/affect, oriented x 3 Skin: normal color, warm/dry Progress/Results/Core Measures Suspected Sepsis SIRS Temperature: Pulse: 95 Respiratory Rate: 20 Blood Pressure 128 /81 Mean: 97 Results/Orders Lab Results Laboratory Tests Test 10/14/21 17:07 Range/Units Urine Color ORANGE Urine Clarity CLEAR Urine pH 7.0 5-9 Urine Specific [place] 1.015 L 1.016-1.022 Urine Protein 1+ H NEGATIVE Urine Glucose (UA) TRACE H NEGATIVE Urine Ketones NEGATIVE NEGATIVE Urine Nitrite POSITIVE H NEGATIVE Urine Bilirubin NEGATIVE NEGATIVE Urine Urobilinogen >=8.0 < = 1.0 MG/DL Urine Leukocyte Esterase 3+ H NEGATIVE Urine RBC (Auto) 1+ H NEGATIVE Urine RBC 0-2 /HPF Urine WBC 50-100 H /HPF Urine Squamous Epithelial Cells NONE /HPF Urine Crystals NONE /LPF Urine Bacteria LARGE H /HPF Urine Casts NONE /LPF Urine Mucus NEGATIVE /LPF Urine Culture Indicated YES Vital Signs/I&O 10/14/21 17:01 Temp 37.4 Pulse 95 Resp 20 B/P (MAP) 128/81 (97) Pulse Ox 96 O2 Delivery Room Air Capillary Refill : Less Than 3 Seconds Blood Pressure Mean: 97 Progress Note : Time: 17:59 Progress Note Patient treated in the emergency department for STI with 1 g of azithromycin as well as 250 mg of Rocephin. I did go ahead and put him on Macrobid for 7 days. 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 Recommended increasing fluids, ibuprofen and Tylenol for fevers and body aches. Return precautions given. He verbalized understanding. All questions are sought and answered Departure Impression Primary Impression: Urinary tract infection Qualified Codes: N39.0 - Urinary tract infection, site not specified; R31.9 - Hematuria, unspecified Disposition: 01 HOME, SELF-CARE Condition: Stable Departure-Patient Inst. Decision time for Depature: 18:00 Referrals: [facility] (PCP) Primary Care Physician ANTONIO GORDON MD (Family) Primary Care Physician Patient Instructions: Urinary Tract Infection, Adult ED Add. Discharge Instructions: Drink plenty of fluids to stay well-hydrated. Take pvsv-yjs-efqzuzl ibuprofen 3 pills which is 600 mg every 6 hours as needed with food for fever, body aches. If after 48 hours on the new antibiotic you continue to have fever, nausea, vomiting please come back to the emergency room for reevaluation. The cultures we obtained today should result in 2 to 3 days and we will contact him if there is any concern Follow-up with your primary care doctor as needed Scripts Nitrofurantoin Monohyd/M-Cryst (Macrobid 100 mg Capsule) 100 Mg Capsule 1 TAB PO BID for 7 Days, #14 CAP Prov: BRITTANEY HARTMAN MD 10/14/21 Copy Copies To 1: ANTONIO GORDON MD, KATHRYN M MD Oct 14, 2021 17:58
[2021-10-14] MEDS ORDERED: LIDOCAINE 1% INJ 20 ML VIAL INJ ONE (18:00)
[2021-10-14] MEDS ORDERED: AZITHROMYCIN 250 MG TAB (ZITHROMAX) PO ONE (18:00)
[2021-10-14] MEDS ORDERED: cefTRIAXone 250 MG/2.5 ML ML IM ONE (18:00)
[2021-10-14] MEDS ORDERED: NITR-65 PO (18:01)
== END 2021-10-14 18:24 | disposition home or self-care (01) ==
LOC: EDUNIT# 16:25 → ER 16:27
DX: N39.0 Urinary tract infection, site not specified (principal); F17.210 Nicotine dependence, cigarettes, uncomplicated; Z87.442 Personal history of urinary calculi
CPT/HCPCS: 36415; 81000; 87077; 87088; 87186; 87491; 87591; 99284